=== PATIENT | male | born 1985 | race Caucasian/White ===

== ENCOUNTER 2017-10-18 11:26 | Emergency (ER) | payer OTHER ==
[~2017-10-18] VITALS: Ht 170.2 cm; Wt 79.4 kg
[2017-10-18 11:38] VITALS: BP 180/89
== END 2017-10-18 12:40 | disposition home or self-care (01) ==
LOC: ER 11:26
DX: S01.01XA Laceration without foreign body of scalp, initial encounter (principal); S01.81XA Laceration without foreign body of other part of head, initial encounter; W22.8XXA Striking against or struck by other objects, initial encounter; Y93.89 Activity, other specified; Y92.89 Other specified places as the place of occurrence of the external cause; Y99.8 Other external cause status

== ENCOUNTER 2018-06-18 14:11 | Emergency (ER) | payer OTHER ==
[~2018-06-18] VITALS: Ht 170.2 cm; Wt 81.7 kg
[2018-06-18] MEDS ORDERED: FLEXERIL PO (14:40)
[2018-06-18] MEDS ORDERED: IBUPROFEN 400400 M2 PO (14:40)
[2018-06-18 15:08] VITALS: BP 180/94
== END 2018-06-18 15:09 | disposition home or self-care (01) ==
LOC: ER 14:11
DX: M54.5 Low back pain (principal)